=== PATIENT | female | born 1945 | race Caucasian/White ===

== ENCOUNTER 2017-04-12 13:19 | Emergency (ER) | payer OTHER ==
--- NOTE | 2017-04-12 14:03 | EDPHY ---
H & P Stated Complaint: L LOWER ABD PAIN/VAGINAL? BLEEDING/HAS HAD HYSTERECTOMY Time Seen by Provider: 04/12/17 14:03 HPI/ROS: CHIEF COMPLAINT: Left-sided abdominal pain, resolved vaginal bleeding HISTORY OF PRESENT ILLNESS: The patient presents to the ED for evaluation of left-sided abdominal pain. She has had several days of diarrhea. The patient reports that over the past 3 days she has had some intermittent vaginal bleeding. The patient reports she has a prior history of hysterectomy. She has had no history of vaginal bleeding in the past. She denies any fall or trauma. The patient does have a history of prior back surgeries with an anterior abdominal approach. The patient did developed a small-bowel obstruction which required hospitalization and bowel section in June of this year. The patient denies any fever, dysuria, cough or congestion. She reports her left-sided abdominal pain as mild in nature. REVIEW OF SYSTEMS: A comprehensive 10 point review of systems is otherwise negative aside from elements mentioned in the history of present illness. Source: Patient Exam Limitations: No limitations - Personal History Current Tetanus/Diphtheria Vaccine: Unsure - Medical/Surgical History Hx Asthma: Yes Hx Chronic Respiratory Disease: No Hx Diabetes: Yes Hx Cardiac Disease: No Hx Renal Disease: No Hx Cirrhosis: No Hx Alcoholism: No Hx HIV/AIDS: No Hx Splenectomy or Spleen Trauma: No Other PMH: BACK SURG/HYSTERECOMY/CARPAL TUNNEL/BURT SAN/PLANTAR FASCITIS/ - Social History Smoking Status: Never smoked - Physical Exam Exam: General Appearance: Slightly obese female, no acute distress Eyes: Pupils equal and round no pallor or injection ENT, Mouth: Mucous membranes moist Respiratory: There are no retractions, lungs are clear to auscultation Cardiovascular: Regular rate and rhythm Gastrointestinal: Tenderness to palpation left lower quadrant Genitourinary: No obvious vaginal bleeding or evidence external vaginal trauma noted. Speculum does demonstrate some prolapse of the bladder into the vaginal canal, there is no obvious source of bleeding appreciated on speculum examination Neurological: A&O, normal motor function, normal sensory exam Skin: Warm and dry, no rashes Musculoskeletal: Neck is supple nontender Extremities: symmetrical, full range of motion Constitutional: Initial Vital Signs Temperature (C) 36.7 C 04/12/17 13:30 Heart Rate 82 04/12/17 13:30 Respiratory Rate 17 04/12/17 13:30 Blood Pressure 159/90 H 04/12/17 13:30 O2 Sat (%) 95 04/12/17 13:30 O2 Delivery Mode Room Air Allergies/Adverse Reactions: amoxicillin [From Augmentin] Allergy (Verified 04/12/17 13:28) clavulanic acid [From Augmentin] Allergy (Verified 04/12/17 13:28) erythromycin base Allergy (Verified 04/12/17 13:28) naproxen Allergy (Verified 04/12/17 13:28) Home Medications: Medication Instructions Recorded Janumet 50-1,000 mg Tablet 04/12/17 Omeprazole 04/12/17 SIMVASTATIN 04/12/17 Medical Decision Making - Diagnostics Imaging Results: Imaging Impressions Abdomen CT 04/12/17 14:26 Impression: 1. Postsurgical stranding in the left lower quadrant ventral to hernia mesh, which could be related to inflammation or recent surgery, with no visible abscess or hematoma. 2. Minimal sigmoid diverticulosis without evidence of diverticulitis. 3. Additional findings as above. Findings discussed with Javier Love 04/12/2017, at 1503 hours. ED Course/Re-evaluation: The patient presents the emergency department with mild left lower quadrant pain and concerns about resolved vaginal bleeding. The patient is nontoxic well -appearing. She has mild tenderness noted on her abdominal exam. Pelvic examination demonstrated no obvious source of bleeding. The patient was taken for CT scan of the abdomen pelvis to assess for possible diverticulitis or other intra-abdominal pathology. Fortunately the results of this study were normal. The patient's CBC and serum chemistries are within normal limits. The patient was re-evaluated by myself at 3:30 p.m.. She is in no acute distress. Her abdominal examination remains reassuring. I do feel that she can be discharged home and follow up with her primary care provider Dr. Carline Hogan for any symptoms of recurrent vaginal bleeding. She has been given customary aftercare instructions and return precautions. Differential Diagnosis: Differential diagnosis considered includes vaginal trauma, vaginal malignancy, diverticulitis, dehydration, lower GI bleed - Data Points Laboratory Results: Laboratory Results 04/12/17 14:00 04/12/17 14:00 04/12/17 04/12/17 04/12/17 14:01 14:00 14:00 WBC RBC Hgb POC Hgb 15.6 gm/dL gm/dL (12.6-16.3) Hct POC Hct 46 % % (38-47) MCV MCH MCHC RDW Plt Count MPV Neut % (Auto) Lymph % (Auto) Allen % (Auto) Eos % (Auto) Baso % (Auto) Nucleat RBC Rel Count Absolute Neuts (auto) Absolute Lymphs (auto) Absolute Monos (auto) Absolute Eos (auto) Absolute Basos (auto) Absolute Nucleated RBC Immature Gran % Immature Gran # PT 13.4 SEC SEC (12.0-15.0) INR 1.03 (0.83-1.16) APTT 32.0 SEC SEC (23.0-38.0) POC Sodium 142 mEq/L mEq/L (134-144) Sodium 141 mEq/L mEq/L (134-144) POC Potassium 4.1 mEq/L mEq/L (3.3-5.0) Potassium 4.2 mEq/L mEq/L (3.5-5.2) POC Chloride 104 mEq/L mEq/L (97-110) Chloride 103 mEq/L mEq/L (97-110) Carbon Dioxide 24 mEq/l mEq/l (22-31) Anion Gap 14 mEq/L mEq/L (8-16) POC BUN 22 mg/dL mg/dL (7-23) BUN 19 mg/dL mg/dL (7-23) Creatinine 0.9 mg/dL mg/dL (0.6-1.0) POC Creatinine 0.9 mg/dL mg/dL (0.6-1.0) Estimated GFR > 60 Glucose 112 mg/dL H mg/dL (70-100) POC Glucose 118 mg/dL H mg/dL (70-100) Calcium 9.9 mg/dL mg/dL (8.5-10.4) 04/12/17 14:00 WBC 9.49 10^3/uL 10^3/uL (3.80-9.50) RBC 5.15 10^6/uL 10^6/uL (4.18-5.33) Hgb 15.3 g/dL g/dL (12.6-16.3) POC Hgb Hct 44.6 % % (38.0-47.0) POC Hct MCV 86.6 fL fL (81.5-99.8) MCH 29.7 pg pg (27.9-34.1) MCHC 34.3 g/dL g/dL (32.4-36.7) RDW 13.9 % % (11.5-15.2) Plt Count 231 10^3/uL 10^3/uL (150-400) MPV 9.7 fL fL (8.7-11.7) Neut % (Auto) 71.0 % % (39.3-74.2) Lymph % (Auto) 21.8 % % (15.0-45.0) Allen % (Auto) 5.3 % % (4.5-13.0) Eos % (Auto) 0.8 % % (0.6-7.6) Baso % (Auto) 0.7 % % (0.3-1.7) Nucleat RBC Rel Count 0.0 % % (0.0-0.2) Absolute Neuts (auto) 6.73 10^3/uL H 10^3/uL (1.70-6.50) Absolute Lymphs (auto) 2.07 10^3/uL 10^3/uL (1.00-3.00) Absolute Monos (auto) 0.50 10^3/uL 10^3/uL (0.30-0.80) Absolute Eos (auto) 0.08 10^3/uL 10^3/uL (0.03-0.40) Absolute Basos (auto) 0.07 10^3/uL 10^3/uL (0.02-0.10) Absolute Nucleated RBC 0.00 10^3/uL 10^3/uL (0-0.01) Immature Gran % 0.4 % % (0.0-1.1) Immature Gran # 0.04 10^3/uL 10^3/uL (0.00-0.10) PT INR APTT POC Sodium Sodium POC Potassium Potassium POC Chloride Chloride Carbon Dioxide Anion Gap POC BUN BUN Creatinine POC Creatinine Estimated GFR Glucose POC Glucose Calcium Point of Care Test Results: 04/12/17 14:01 POC Sodium 142 POC Potassium 4.1 POC Chloride 104 POC BUN 22 POC Creatinine 0.9 POC Glucose 118 H Departure - Departure Disposition: Home, Routine, Self-Care Clinical Impression: Abdominal pain Qualifiers: Abdominal location: left lower quadrant Qualified Code(s): R10.32 - Left lower quadrant pain Condition: Good Instructions: Abdominal Pain (ED) Additional Instructions: 1. Please return to the emergency department for any worsening abdominal pain, recurrent bleeding, fever or other concerns. . Your CT scan demonstrates no evidence of obvious intra-abdominal disease. Your pelvic examination demonstrated no obvious source of vaginal bleeding. 2. I do recommend following up with your primary care provider for any symptoms of recurrence vaginal bleeding. You have also been given the contact number of our on-call regional marketing director for any on-going symptoms. Referrals: Bre Hogan MD [Primary Care Provider] - As per Instructions
[2017-04-12 14:04] VITALS: O2SAT 95
[2017-04-12 14:17] LABS: % IMMATURE GRANULYOCYTES 0.4 % (0.0-1.1); ABSOLUTE IMMATURE GRANULOCYTES 0.04 10^3/uL (0.00-0.10); ADD DIFF? NO; ADD MORPH? NO; ADD SCAN? NO; ATYPICAL LYMPHOCYTE FLAG 0 (0-99); FRAGMENT RBC FLAG 0 (0-99); HEMATOCRIT 44.6 % (38.0-47.0); HEMOGLOBIN 15.3 g/dL (12.6-16.3); LEFT SHIFT FLG 0 (0-99); LIPEMIA HEMOLYSIS FLAG 90 (0-99); MEAN CELL HEMOGLOBIN 29.7 pg (27.9-34.1); MEAN CELL HEMOGLOBIN CONCENTR. 34.3 g/dL (32.4-36.7); MEAN CELL VOLUME 86.6 fL (81.5-99.8); MEAN PLATELET VOLUME 9.7 fL (8.7-11.7); PLATELET CLUMPS FLAG 10 (0-99); PLATELET COUNT 231 10^3/uL (150-400); RED BLOOD CELL COUNT 5.15 10^6/uL (4.18-5.33); RED CELL DISTRIBUTION WIDTH 13.9 % (11.5-15.2)
[2017-04-12 14:26] LABS: INR 1.03 (0.83-1.16); PROTIME(PATIENT) 13.4 SEC (12.0-15.0)
[2017-04-12] MEDS ORDERED: IOPAMIDOL (ISOVUE-300) 100 ML BTL ONE (14:33)
[2017-04-12 14:39] LABS: ANION GAP 14 mEq/L (8-16); CALCIUM 9.9 mg/dL (8.5-10.4); CARBON DIOXIDE 24 mEq/l (22-31); CHLORIDE 103 mEq/L (97-110); CREATININE 0.9 mg/dL (0.6-1.0); GLOMERULAR FILTRATION RATE > 60; GLUCOSE 112 mg/dL (70-100); POTASSIUM 4.2 mEq/L (3.5-5.2); SODIUM 141 mEq/L (134-144)
[2017-04-12 15:17] VITALS: BP 128/69; PULSE 65; RESP 18; TEMP 98.2
== END 2017-04-12 15:37 | disposition home or self-care (01) ==
DX: R10.32 Left lower quadrant pain (principal); J45.909 Unspecified asthma, uncomplicated; E11.9 Type 2 diabetes mellitus without complications
CPT/HCPCS: 74177; 99285; Q9967; 82947-QW

== ENCOUNTER → 2017-08-08 | Outpatient (CLI) | payer OTHER ==
[~2017-08-08] MED LIST: IOPAMIDOL (ISOVUE-300) 100 ML BTL ONE
== END ==
LOC: FIMAGING 13:53
PROVIDERS: ATTEND Surgery
DX: R10.32 Left lower quadrant pain (principal); Z90.710 Acquired absence of both cervix and uterus; Z98.1 Arthrodesis status; Z98.890 Other specified postprocedural states
CPT/HCPCS: 74177; Q9967

== ENCOUNTER 2017-10-14 05:56 | Inpatient (IN) | payer OTHER ==
--- NOTE | 2017-10-13 09:46 | PDGENHP ---
History and Physical - Chief Complaint LLQ pain - History of Present Illness 72yo female who presented to OSH in 2017 with incarcerated LLQ hernia. Was taken to the OR for reduction and repair. Since then, has had chronic LLQ pain. Has been seen in my office multiple times. CT scanning has shows persistence of inflammation adjacent to old composix mesh (PTFE). She desires relief History Information - Allergies/Home Medication List Allergies/Adverse Reactions: amoxicillin [From Augmentin] Allergy (Verified 04/12/17 13:28) clavulanic acid [From Augmentin] Allergy (Verified 04/12/17 13:28) erythromycin base Allergy (Verified 04/12/17 13:28) naproxen Allergy (Verified 04/12/17 13:28) Home Medications: Cholecalciferol (Vitamin D3) [Vitamin D3] 10,000 unit PO DAILY 10/11/17 [Last Taken Unknown] FLUoxetine HCL [Fluoxetine HCl] 40 mg PO DAILY 10/11/17 [Last Taken Unknown] Ibuprofen [Motrin (*)] 600 - 800 mg PO BID PRN 10/11/17 [Last Taken Unknown] Multivitamins [Multivitamin (*)] 1 each PO DAILY 10/11/17 [Last Taken Unknown] Omeprazole 40 mg PO DAILY 10/11/17 [Last Taken Unknown] Simvastatin [Zocor] 40 mg PO HS 10/11/17 [Last Taken Unknown] Sitagliptin Phos/Metformin HCl [Janumet 50-500 mg Tablet] 1 each PO BID [Last Taken Unknown] I have personally reviewed and updated: family history, medical history, social history, surgical history Past Medical History: depression, DM, HLD, chronic LLQ pain - Surgical History Additional surgical history: incarcerated ventral hernia repaired c mesh 07/2016 - Family History Positive for: non-pertinent - Social History Smoking Status: Never smoked Review of Systems Review of Systems: ROS: 10pt was reviewed & negative except for what was stated in HPI & below Physical Exam Physical Exam: Constitutional: no apparent distress, appears nourished, not in pain Eyes: PERRL, anicteric sclera, EOMI Ears, Nose, Mouth, Throat: moist mucous membranes, hearing normal, ears appear normal, no oral mucosal ulcers Cardiovascular: regular rate and rhythym, no murmur, rub, or gallop, No edema Respiratory: no respiratory distress, no rales or rhonchi, clear to auscultation Gastrointestinal: other (TTP in the LLQ adjacent to incision, no rebound or guarding ) Genitourinary: no bladder fullness, no bladder tenderness Skin: warm, normal color, no rashes or abrasions, no fluctuance, no induration, No mottled Musculoskeletal: full muscle strength, no muscle tenderness, normal joint ROM, no joint effusions Psychiatric: interacting appropriately, not anxious, not encephalopathic, thought process linear Lymph, Heme, Immunologic: no cervical LAD, no supraclavicular LAD Lab Data & Imaging Review Visualized and Interpreted imaging results: Yes Interpretation: CT: persistent inflammation adjacent to previous mesh Assessment & Plan Assessment: chronic LLQ pain following incarcerated hernia repair Plan: to OR for exploration, likely mesh explantation and repair. Discussed the risks , benefits and alternatives including the fact that she may have persistent pain in the area. She is amenable and wishes to proceed.
[2017-10-14] MEDS ORDERED: CLINDAMYCIN 900 MG/DEXTROSE 50 ML IV ONE (06:27)
[2017-10-14] MEDS ORDERED: LR 1,000 ML IV ONE (06:28)
[2017-10-14 07:01] LABS: PLATELET COUNT 221 10^3/uL (150-400)
--- NOTE | 2017-10-14 07:35 | PDHPUP ---
History & Physical Update H&P update statement: This history and physical update is based on an assessment of the patient which was completed after admission or registration (within 24 hours), but prior to the surgery/procedure. H&P update: H&P reviewed & patient examined, no change in patient's condition since H&P completed
[2017-10-14] MEDS ORDERED: BUPIVACAINE 0.25% 30 ML SDV ONE (08:02)
--- NOTE | 2017-10-14 08:10 | PDANEPAE ---
ANE History of Present Illness L abdominal wall mesh removal and inguinal hernia repair ANE Past Medical History - Cardiovascular History Hx Hypertension: No Hx Arrhythmias: No Hx Chest Pain: No Hx Coronary Artery / Peripheral Vascular Disease: No Hx CHF / Valvular Disease: No Hx Palpitations: No - Pulmonary History Hx COPD: No Hx Asthma/Reactive Airway Disease: Yes Hx Recent Upper Respiratory Infection: No Hx Oxygen in Use at Home: No Hx Sleep Apnea: No Sleep Apnea Screening Result - Last Documented: Negative Pulmonary History Comment: MILD ASTHMA TRIGGERED BY COLDS - Neurologic History Hx Cerebrovascular Accident: No Hx Seizures: No Hx Dementia: No - Endocrine History Hx Diabetes: Yes Endocrine History Comment: TYPE 11 - Renal History Hx Renal Disorders: No - Liver History Hx Hepatic Disorders: No - Neurological & Psychiatric Hx Hx Neurological and Psychiatric Disorders: No Neurological / Psychiatric History Comment: DEPRESSION - Cancer History Hx Cancer: No - Congenital Disorder History Hx Congenital Disorders: Yes Congenital History Comment: DIABETES - GI History Hx Gastrointestinal Disorders: Yes Gastrointestinal History Comment: REFLUX - Other Health History Other Health History: UPPER DENTURES - Chronic Pain History Chronic Pain: Yes (LOWER BACK) - Surgical History Prior Surgeries: HERNIA REPAIR 06/22 ANE Review of Systems Review of Systems: - Exercise capacity METS (RN): 4 METS ANE Patient History - Allergies Allergies/Adverse Reactions: amoxicillin [From Augmentin] Allergy (Verified 10/13/17 12:27) Hives clavulanic acid [From Augmentin] Allergy (Verified 10/13/17 12:27) Hives erythromycin base Allergy (Verified 10/13/17 12:27) Rash naproxen Allergy (Verified 10/13/17 12:27) Rash - Home Medications Home medications: home medication list seen and reviewed Home Medications: Cholecalciferol (Vitamin D3) [Vitamin D3] 10,000 unit PO DAILY 10/11/17 [Last Taken 10/13/17] FLUoxetine HCL [Fluoxetine HCl] 40 mg PO DAILY 10/11/17 [Last Taken 10/13/17] Ibuprofen [Motrin (*)] 600 - 800 mg PO BID PRN 10/11/17 [Last Taken 10/13/17] Multivitamins [Multivitamin (*)] 1 each PO DAILY 10/11/17 [Last Taken 10/13/17] Omeprazole 40 mg PO DAILY 10/11/17 [Last Taken 10/13/17] Simvastatin [Zocor] 40 mg PO HS 10/11/17 [Last Taken 10/13/17] Sitagliptin Phos/Metformin HCl [Janumet 50-500 mg Tablet] 1 each PO BID [Last Taken 10/13/17] - NPO status NPO Status: no food or drink >8 hours NPO Since - Liquids (Date): 10/14/17 NPO Since - Liquids (Time): 00:01 NPO Since - Solids (Date): 10/13/17 NPO Since - Solids (Time): 23:00 - Anes Hx Anes Hx: no prior problems - Smoking Hx Smoking Status: Never smoked - Alcohol Use Alcohol Use: None - Family Anes Hx Family Anes Hx: none Family Hx Anesthesia Complications: NONE ANE Labs/Vital Signs - Labs Result Diagrams: 10/14/17 06:55 10/14/17 06:55 - Vital Signs Blood Pressure: 130/76 Heart Rate: 83 Respiratory Rate: 16 O2 Sat (%): 95 Height: 152.4 cm Weight: 84.368 kg ANE Physical Exam - Airway Mallampati Score: Class 1 Mouth exam: normal dental/mouth exam - Pulmonary Pulmonary: no respiratory distress - Cardiovascular Cardiovascular: regular rate and rhythym - ASA Status ASA Status: II ANE Anesthesia Plan Anesthesia Plan: general endotracheal anesthesia, GA w LMA
[2017-10-14] MEDS ORDERED: PROPOFOL/EMULSION 500 MG/50 ML BOTTLE IV ONE ×2 (08:18→09:28)
[2017-10-14] MEDS ORDERED: REMIFENTANIL HCL 1 MG VIAL ONE ×2 (08:18→09:27)
[2017-10-14] MEDS ORDERED: fentaNYL 100 MCG/2 ML INJ ONE ×2 (08:19→10:42)
[2017-10-14] MEDS ORDERED: DEXAMETHASONE 4 MG/ML VIAL ONE (08:21)
[2017-10-14] MEDS ORDERED: LIDOCAINE 2% 100 MG/5 ML SYR ONE (08:21)
[2017-10-14] MEDS ORDERED: ONDANSETRON 4 MG/2 ML VIAL ONE (08:21)
[2017-10-14] MEDS ORDERED: LIDOCAINE HCL 160 MG/4 ML LTA KIT TP ONE (08:26)
[2017-10-14] MEDS ORDERED: epHEDrine SULFATE 10 MG/ML SYR ONE ×2 (08:33)
[2017-10-14] MEDS ORDERED: [UNRECOGNIZED DRUG - OTHER] PO SCH (09:00)
[2017-10-14] MEDS ORDERED: METFORMIN HCL PO SCH (09:00)
[2017-10-14] MEDS ORDERED: SITAGLIPTIN PHOS PO SCH (09:00)
[2017-10-14] MEDS ORDERED: NON-FORMULARY NEW DRUG (Omeprazole [Omeprazole] 40 MG) PO SCH (09:00)
[2017-10-14] MEDS ORDERED: CHOLECALCIFEROL 10000 UNIT PO SCH (09:00)
[2017-10-14] MEDS ORDERED: NON-FORMULARY NEW DRUG (Fluoxetine Hcl [Fluoxetine Hcl] 40 MG) PO SCH (09:00)
[2017-10-14] MEDS ORDERED: NALOXONE HCL 0.4 MG/ML INJ IVP PRN (10:10)
[2017-10-14] MEDS ORDERED: METOCLOPRAMIDE 10 MG/2 ML VIAL IVP PRN (10:10)
[2017-10-14] MEDS ORDERED: PROMETHAZINE HCL 25 MG/ML INJ IVP PRN (10:10)
[2017-10-14] MEDS ORDERED: LABETALOL HCL 5 MG/ML 20 ML MDV IVP PRN (10:10)
[2017-10-14] MEDS ORDERED: PHENYLEPHRINE HCL 100 MCG/ML SYR IVP PRN (10:10)
[2017-10-14] MEDS ORDERED: oxyCODONE IR 5 MG TAB PO PRN (10:10)
[2017-10-14] MEDS ORDERED: ALBUTEROL 3 ML DEYVIAL IH PRN (10:10)
[2017-10-14] MEDS ORDERED: ONDANSETRON 4 MG/2 ML VIAL IVP PRN ×2 (10:10→10:31)
[2017-10-14] MEDS ORDERED: ACETAMINOPHEN 500 MG TAB PO PRN (10:10)
[2017-10-14] MEDS ORDERED: DEXAMETHASONE 4 MG/ML VIAL IVP PRN (10:10)
[2017-10-14] MEDS ORDERED: LR 500 ML IV PRN (10:10)
[2017-10-14] MEDS ORDERED: HYDROCODONE/APAP 5/325 TAB PO PRN (10:10)
[2017-10-14] MEDS ORDERED: MEPERIDINE 25 MG/0.5 ML AMP IVP PRN (10:10)
[2017-10-14] MEDS ORDERED: HYDROmorphone HCL/NS 0.5 MG/ML SYR IVP PRN (10:31)
--- NOTE | 2017-10-14 10:31 | POSTOPPROG ---
Post Op Note Date of Operation: 10/14/17 Surgeon: Ángel Mariano Anesthesiologist: Josiah Anesthesia: GET(General Endotracheal) Pre-op Diagnosis: Chronic LLQ pain Post-op Diagnosis: same Procedure: abd exploration, mesh explantation, ventral hernia repair Findings: old mesh adherent, removed, no abscess Inf/Abcess present in the surg proc area at time of surgery?: No EBL: 50-100 Specimen(s): old mesh
[2017-10-14] MEDS ORDERED: HYDROmorphONE/DILAUDID 2 MG/ML INJ ONE (10:43)
[2017-10-14] MEDS: fentaNYL 100 MCG/2 ML INJ IVP PRN ×2 (10:44→10:54)
[2017-10-14] MEDS ORDERED: D5W 1/2 NS W/ 20 KCl/L 1,000 ML IV SCH (10:45)
[2017-10-14] MEDS: HYDROmorphONE/DILAUDID 2 MG/ML INJ IVP PRN ×2 (10:45→10:54)
[2017-10-14] MEDS ORDERED: oxyCODONE IR 5 MG TAB ONE (11:12)
--- NOTE | 2017-10-14 14:01 | GOP ---
[f rep st] OPERATIVE REPORT DATE OF OPERATION: 10/14/2017 SURGEON: Ángel Mariano MD COMPOTYPE OPERATOR: None. ANESTHESIA: General endotracheal. ANESTHESIOLOGIST: Guido Rahman MD PREOPERATIVE DIAGNOSIS: Chronic pain status post incarcerated ventral hernia repair. POSTOPERATIVE DIAGNOSIS: Chronic pain status post incarcerated ventral hernia repair. PROCEDURE PERFORMED: 1. Abdominal exploration. 2. Mesh explantation. 3. Ventral hernia repair with mesh. FINDINGS: Old mesh found balled up beneath fascia containing and adherent to small bowel, completely excised, fascial edges cleansed and repaired with 9 cm Symbotex mesh. SPECIMENS: Old mesh. ESTIMATED BLOOD LOSS: 50 cc. INDICATIONS: A 72-year-old female status post incarcerated ventral hernia repair approximately 1 yea r ago. The patient has had chronic pain since repair. CT scan imaging has shown chronic inflammatio n at the site. DESCRIPTION OF PROCEDURE: The patient was greeted in the preoperative suite. Once again, risks, gladis efits, and alternatives were discussed. Consent was signed. She was then brought back to the operati ve suite, placed on the OR table in supine position. After all anesthesia machines, including SCDs, were on and functioning, a [employer] time-out was performed. After successful inducti on of general anesthesia, the patient's abdomen was prepped and draped in typical sterile fashion. I entered the abdomen via her left-sided incision which had been previously utilized. I carried this down through the subcutaneous tissue where I encountered the fascia. The fascial edges were clean an d I entered the fascia just deep to this, I encountered the mesh. The mesh was somewhat adherent to the underlying fascia but more so adherent to the underlying bowel. I spent a significant amount of time successfully lysing small bowel adhesions to the mesh, completely freeing it of all surrounding tissue and successfully explanting it. Once removed, it was passed off. I then inspected the bowel, which was without injury. I then cleaned the underside of the fascial edges circumferentially. I h ad approximately a 5 cm defect. I brought a 9 cm piece of Symbotex mesh into the field in all 4 quad rants. I successfully attached it to the overlying fascia, and anchored it appropriately. I then pl aced additional anchor stitches in all the gap sites utilizing 2-0 Prolene. Once the mesh was succes sfully anchored, I then turned my attention toward closing the fascia, which was done with a running 0 PDS suture, noting excellent fascial reapproximation. Local anesthesia was then infiltrated into t he fascia. Subcutaneous tissue was then irrigated with warm normal saline. It was reapproximated wi th interrupted 3-0 Monocryl and the skin was closed with ranjan. Sterile dressing was placed. The patient was then extubated in the operative suite and taken to the PACU in satisfactory condition. DRAINS: None. COUNTS: All counts were reported as correct x2. /[id number]/MODL
[2017-10-14] MEDS: FLUoxetine 20 MG CAP PO SCH (14:04)
[2017-10-14] MEDS: metFORMIN HCL 500 MG TAB PO SCH ×2 (14:05→20:37)
[2017-10-14] MEDS: PANTOPRAZOLE SODIUM 40 MG TAB PO SCH (14:07)
--- NOTE | 2017-10-14 16:07 | SOAPPROG ---
CHAN Progress Note Assessment/Plan: Assessment/Plan: 72yo F POD#0 s/p mesh explantation and re-do hernia repair for chronic pain - she is a little tachycardic, her pain appears well controlled and she has had adequate UOP - pain is well controlled - abdomen is soft, dressing has some shadowing - needs to ambulate - anticipate home tomorrow versus Tuesday. Dr Durán to see. 10/14/17 16:03 Subjective: doing well, had a shake. Pain is 3/10 Objective: Vital Signs Temp Pulse Resp BP Pulse Ox 36.7 C 101 H 14 93/80 L 92 10/14/17 15:47 10/14/17 15:47 10/14/17 15:47 10/14/17 15:47 10/14/17 15:47 Laboratory Results 10/14/17 06:55 10/14/17 06:55 10/13/17 10/14/17 10/15/17 05:59 05:59 05:59 Intake Total 1600 Output Total 925 Balance 675 ICD10 Worksheet Patient Problems: Problems Problem Status Onset Chronic abdominal pain Acute - ICD10 Problem Qualifiers (1) Chronic abdominal pain
--- NOTE | 2017-10-14 17:37 | PDMN ---
Medical Necessity Medical necessity: C/M review: Chronic pain status post incarcerated ventral hernia repair requiring 10/14/2017 surgery - abdominal exploration, mesh explantation, ventral hernia repair with mesh (CPT code [id number] only surgery per Medicare guidelines). MD anticipates > 2 MN LOS for ongoing med nec for eval and TX of above.
[2017-10-14] MEDS ORDERED: ATORVASTATIN CALCIUM 20 MG TAB PO SCH (21:00)
[2017-10-14] MEDS ORDERED: NON-FORMULARY NEW DRUG (Simvastatin [Zocor] 40 MG) PO SCH (21:00)
[2017-10-15] MEDS: oxyCODONE IR 5 MG TAB PO PRN ×2 (02:59→10:59)
[2017-10-15 07:40] VITALS: BP 107/73
[2017-10-15] MEDS: metFORMIN HCL 500 MG TAB PO SCH (08:58)
[2017-10-15] MEDS: PANTOPRAZOLE SODIUM 40 MG TAB PO SCH (08:58)
[2017-10-15] MEDS: FLUoxetine 20 MG CAP PO SCH (08:59)
[2017-10-15] MEDS ORDERED: CHOLECALCIFEROL VIT D3 2,000 UNITS TAB/CAP PO SCH (09:00)
--- NOTE | 2017-10-15 09:55 | SOAPPROG ---
SOAP Progress Note Assessment/Plan: Assessment: s/p ventral hernia repair Doing very well May dc home No heavy lifting, pushing or pulling greater than 15 lbs for 6 weeks F/U with Dr. Mariano in 7-10 days Diet as tolerated S: Pain controlled. Tolerating diet O: Sitting in bed, appears comfortable CTAB no increased work of breathing Regular rate BS present Soft, Dressing with stain at base Plan: 10/15/17 09:53 Objective: Vital Signs Temp Pulse Resp BP Pulse Ox 36.8 C 88 16 107/73 91 L 10/15/17 07:39 10/15/17 07:39 10/15/17 07:39 10/15/17 07:39 10/15/17 07:39 Laboratory Results 10/14/17 06:55 10/14/17 06:55 10/14/17 10/15/17 10/16/17 05:59 05:59 05:59 Intake Total 4444 Output Total 3875 400 Balance 569 -400 ICD10 Worksheet Patient Problems: Problems Problem Status Onset Chronic abdominal pain Acute
--- NOTE | 2017-10-20 11:20 | PDDCSUM ---
Discharge Summary Discharge Summary: DISCHARGE SUMMARY Date of Admission October 14 Date of Discharge October 15 DISCHARGE DIAGNOSES - chronic left lower quadrant pain HOSPITAL COURSE The patient was admitted and taken to the operating room where her previous mesh repair was successfully explanted in the defect was repaired with a two- layer covered mesh. The patient tolerated the procedure well, had no intraprocedural or postoperative complications. On the day of discharge she was tolerating a regular diet with appropriate pain control, she was subsequently discharged home in stable condition. DISCHARGE MEDICATIONS Narcotics as needed for pain DISPOSITION Home FOLLOW UP Follow up with me in the office in 10-14 days for a general post-operative visit
== END 2017-10-15 14:11 | disposition home or self-care (01) | DRG 909 ==
LOC: F3N 05:56 → F3E 09:19 → OBSVTOIN 10:31 → F3E 11:33
PROVIDERS: ADMIT Surgery; ATTEND Surgery
PROC: 0WUF0JZ Supplement Abdominal Wall with Synthetic Substitute, Open Approach (ICD-10-PCS; principal; 2017-10-14 08:15)
PROC: 0WPF0JZ Removal of Synthetic Substitute from Abdominal Wall, Open Approach (ICD-10-PCS; principal; 2017-10-14 08:15)
DX: T85.848A Pain due to other internal prosthetic devices, implants and grafts, initial encounter (principal); J45.20 Mild intermittent asthma, uncomplicated; E11.9 Type 2 diabetes mellitus without complications
CPT/HCPCS: 97161-GP; C1781; G8978-GP-CH; G8979-GP-CH; G8980-GP-CH; J1100; J1170; J2001; J2370; J2405; J2704; J3010

== ENCOUNTER → 2018-09-11 | Outpatient (CLI) | payer OTHER | LOC: BRMIMAGING 13:26 | PROVIDERS: ATTEND Nurse Practitioner | DX: R05 Cough (principal) | CPT/HCPCS: 71046-PO ==

== ENCOUNTER 2018-09-21 13:07 | Inpatient (IN) | payer OTHER ==
--- NOTE | 2018-09-21 13:32 | EDPHY ---
H & P Stated Complaint: abd pain n/v/d, has consulted Caroline about hernia sx Time Seen by Provider: 09/21/18 13:31 HPI/ROS: HPI: This is a 73-year-old female who presents with Chief Complaint: abd pain n/v/d, has consulted Caroline about hernia sx Location: Periumbilical Quality: Pain, nausea, vomiting Duration: Today Signs and Symptoms: no fever, + nausea, + vomiting, no hematemesis, no blood in stool, no abdominal bloating,+ diarrhea, no back pain, no urinary symptoms, no vaginal bleeding/discharge, no indigestion, no chest pain, no shortness of breath Timing: Rapid onset, intermittent episodes Severity: Moderate to severe Context: Patient complains of sudden onset of nausea and vomiting approximately 3-5 times that started around 11:00 a.m. She was able to eat breakfast today without any difficulty. Patient reports that now she just has dry heaves. Alternating fever and chills. Denies any urinary symptoms, back pain. She is passing flatus. She had several episodes of loose stool yesterday evening but this is not uncommon for her. Patient has a history of ventral hernia status post repair and mesh placement x2. Chart review shows in October of 2017 patient was admitted and had her previous mesh repair removed and the defect repaired with a 2 [address] mesh [address] Dr[address] Mariano. History of type 2 diabetes mellitus and took oral medications this morning. Modifying Factors: None Comment: ROS: A comprehensive 10 system review of systems is otherwise negative aside from elements mentioned in the history of present illness. MEDICAL/SURGICAL/SOCIAL HISTORY: Medical/Surgical history: BACK SURG/HYSTERECOMY/CARPAL TUNNEL sx/[place]/ PLANTAR FASCITIS/HLD/type 2 diabetes mellitus-takes oral medications Social history: Never smoked. Family history noncontributory. CONSTITUTIONAL: Overweight, nontoxic appearing, elderly white female, awake and alert, no obvious distress HEENT: Atraumatic and normocephalic, PERRL, EOMI. Nares patent; no rhinorrhea; no nasal mucosal edema. Tympanic membranes clear. Oropharynx clear, no exudate and moist pink mucosa. Airway patent. No lymphadenopathy. No meningismus. Cardiovascular: Normal S1/S2, regular rate, regular rhythm, without murmur rub or gallop. PULMONARY/CHEST: Symmetrical and nontender. Clear to auscultation bilaterally. Good air movement. No accessory muscle usage. ABDOMEN: Soft, protuberant, well-healed remote incision on the left side noted ; bowel sounds heard x4 quadrants. Moderate periumbilical tenderness, with reducible hernia appreciated, no rebound, no guarding, no peritoneal signs, no masses or organomegaly. No CVAT. EXTREMITIES: 2/2 pulses, strength 5/5, no deformities, no clubbing, no cyanosis or edema. NEUROLOGICAL: no focal neuro deficits. GCS 15. SKIN: Warm and dry, no erythema. no rash. Good capillary refill. Source: Patient Exam Limitations: No limitations - Personal History Current Tetanus/Diphtheria Vaccine: Unsure Current Tetanus Diphtheria and Acellular Pertussis (TDAP): Unsure - Medical/Surgical History Hx Asthma: Yes Hx Chronic Respiratory Disease: No Hx Diabetes: Yes Hx Cardiac Disease: No Hx Renal Disease: No Hx Cirrhosis: No Hx Alcoholism: No Hx HIV/AIDS: No Hx Splenectomy or Spleen Trauma: No Other PMH: BACK SURG/HYSTERECOMY/CARPAL TUNNEL sx/[place]/PLANTAR FASCITIS/ HLD - Social History Smoking Status: Never smoked Constitutional: Initial Vital Signs Heart Rate 72 09/21/18 13:09 Respiratory Rate 18 09/21/18 13:09 Blood Pressure 155/83 H 09/21/18 13:09 O2 Sat (%) 96 09/21/18 13:09 O2 Delivery Mode Room Air Allergies/Adverse Reactions: amoxicillin [From Augmentin] Allergy (Verified 10/13/17 12:27) Hives clavulanic acid [From Augmentin] Allergy (Verified 10/13/17 12:27) Hives erythromycin base Allergy (Verified 10/13/17 12:27) Rash naproxen Allergy (Verified 10/13/17 12:27) Rash Home Medications: Medication Instructions Recorded Cholecalciferol (Vitamin D3) 25,000 unit PO DAILY 10/11/17 [Vitamin D3] FLUoxetine HCL [Fluoxetine HCl] 40 mg PO DAILY 10/11/17 Ibuprofen [Motrin (*)] 600 - 800 mg PO BID PRN 10/11/17 Multivitamins [Multivitamin (*)] 1 each PO DAILY 10/11/17 Omeprazole 40 mg PO DAILY 10/11/17 Simvastatin [Zocor] 40 mg PO HS 10/11/17 Sitagliptin Phos/Metformin HCl 1 each PO BID 10/11/17 [Janumet 50-500 mg Tablet] Albuterol [Proventil Inhaler HFA 1 - 2 puffs IH Q4H PRN 09/21/18 (*)] Herbals/Supplements -Info Only 1 ea PO DAILY 09/21/18 [place]-3 Fatty Acids [Fish Oil 1000 1,000 mg PO DAILY 09/21/18 mg (*)] Medical Decision Making - Diagnostics Imaging Results: Imaging Impressions Abdomen CT 09/21/18 13:34 Impression: Large ventral abdominal wall hernia with multiple loops of small bowel within the subcutaneous fat. No evidence for small bowel obstruction. Mild adjacent stranding in the mesenteric fat and minimal fluid. Results called and discussed with Jackeline Schuler on 09/21/2018 at 1548 hours. ED Course/Re-evaluation: Vital signs reviewed and stable upon arrival. No systemic signs. IV access, laboratory studies, CT abdomen and pelvis scan ordered Given 1 L normal saline, IV Dilaudid 0.5 mg, IV Zofran 4 mg 1354: Notified by tech that lactic acid 2.5. Fluids normal saline 30 mL/kg ordered 1540: Called by a radiologist, Dr. Woodward, who reports that CT abdomen and pelvis scan shows ventral hernia measuring approximately 10 cm containing small loops of bowel but no signs of incarceration, inflammatory changes, perforation , obstruction. +Mild adjacent stranding in the mesenteric fat and minimal fluid. 1542: ED decision to consult Dr. Mariano. Repeat lactic acid 2.8; despite almost 3 L of IV fluids. Urinalysis ordered. Patient did have diarrhea yesterday and this may be the source. Will admit for further care. no stools in ER to obtain stool studies. 1700: Urinalysis unremarkable This patient was seen under the supervision of my primary supervising physician. I evaluated and cared for this patient with attending. Differential Diagnosis: Abdominal pain including but not limited to appendicitis, cholecystitis, obstruction, incarcerated hernia, gastritis and urinary tract infection. - Data Points Laboratory Results: Laboratory Results 09/21/18 13:40 09/21/18 13:40 09/21/18 09/21/18 09/21/18 15:39 14:16 13:40 WBC RBC Hgb POC Hgb 15.0 gm/dL gm/dL (12.6-16.3) Hct POC Hct 44 % % (38-47) MCV MCH MCHC RDW Plt Count MPV Neut % (Auto) Lymph % (Auto) [place] % (Auto) Eos % (Auto) Baso % (Auto) Nucleat RBC Rel Count Absolute Neuts (auto) Absolute Lymphs (auto) Absolute Monos (auto) Absolute Eos (auto) Absolute Basos (auto) Absolute Nucleated RBC Immature Gran % Immature Gran # VBG Lactic Acid 2.8 mmol/L H mmol/L (0.7-2.1) POC Sodium 142 mEq/L mEq/L (135-145) Sodium 138 mEq/L mEq/L (135-145) POC Potassium 3.6 mEq/L mEq/L (3.3-5.0) Potassium 3.9 mEq/L mEq/L (3.5-5.2) POC Chloride 104 mEq/L mEq/L (97-110) Chloride 104 mEq/L mEq/L (97-110) Carbon Dioxide 25 mEq/l mEq/l (22-31) POC Total CO2 25 mEq/L mEq/L (22-31) Anion Gap 9 mEq/L mEq/L (6-14) POC BUN 18 mg/dL mg/dL (7-23) BUN 20 mg/dL mg/dL (7-23) Creatinine 1.0 mg/dL mg/dL (0.6-1.0) POC Creatinine 0.9 mg/dL mg/dL (0.6-1.0) Estimated GFR 55 Glucose 110 mg/dL H mg/dL (70-100) POC Glucose 109 mg/dL H mg/dL (70-100) Calcium 9.4 mg/dL mg/dL (8.5-10.4) Total Bilirubin 0.3 mg/dL mg/dL (0.1-1.4) Conjugated Bilirubin 0.3 mg/dL mg/dL (0.0-0.5) Unconjugated Bilirubin 0.0 mg/dL mg/dL (0.0-1.1) AST 36 IU/L IU/L (14-46) ALT 52 IU/L IU/L (9-52) Alkaline Phosphatase 79 IU/L IU/L (38-126) Total Protein 6.6 g/dL g/dL (6.3-8.2) Albumin 3.8 g/dL g/dL (3.5-5.0) Lipase 80 IU/L IU/L (23-300) 09/21/18 09/21/18 13:40 13:40 WBC 11.92 10^3/uL H 10^3/uL (3.80-9.50) RBC 4.86 10^6/uL 10^6/uL (4.18-5.33) Hgb 14.1 g/dL g/dL (12.6-16.3) POC Hgb Hct 42.5 % % (38.0-47.0) POC Hct MCV 87.4 fL fL (81.5-99.8) MCH 29.0 pg pg (27.9-34.1) MCHC 33.2 g/dL g/dL (32.4-36.7) RDW 14.0 % % (11.5-15.2) Plt Count 238 10^3/uL 10^3/uL (150-400) MPV 10.2 fL fL (8.7-11.7) Neut % (Auto) 76.7 % H % (39.3-74.2) Lymph % (Auto) 15.4 % % (15.0-45.0) [place] % (Auto) 6.0 % % (4.5-13.0) Eos % (Auto) 1.0 % % (0.6-7.6) Baso % (Auto) 0.4 % % (0.3-1.7) Nucleat RBC Rel Count 0.0 % % (0.0-0.2) Absolute Neuts (auto) 9.14 10^3/uL H 10^3/uL (1.70-6.50) Absolute Lymphs (auto) 1.84 10^3/uL 10^3/uL (1.00-3.00) Absolute Monos (auto) 0.71 10^3/uL 10^3/uL (0.30-0.80) Absolute Eos (auto) 0.12 10^3/uL 10^3/uL (0.03-0.40) Absolute Basos (auto) 0.05 10^3/uL 10^3/uL (0.02-0.10) Absolute Nucleated RBC 0.00 10^3/uL 10^3/uL (0-0.01) Immature Gran % 0.5 % % (0.0-1.1) Immature Gran # 0.06 10^3/uL 10^3/uL (0.00-0.10) VBG Lactic Acid 2.5 mmol/L H mmol/L (0.7-2.1) POC Sodium Sodium POC Potassium Potassium POC Chloride Chloride Carbon Dioxide POC Total CO2 Anion Gap POC BUN BUN Creatinine POC Creatinine Estimated GFR Glucose POC Glucose Calcium Total Bilirubin Conjugated Bilirubin Unconjugated Bilirubin AST ALT Alkaline Phosphatase Total Protein Albumin Lipase Medications Given: Discontinued Medications Hydromorphone HCl (Dilaudid) 0.5 mg IVP EDNOW ONE Stop: 09/21/18 13:34 Last Admin: 09/21/18 14:02 Dose: 0.5 mg Sodium Chloride (Ns) 1,000 mls @ 0 mls/hr IV EDNOW ONE; Wide Open PRN Reason: Protocol Stop: 09/21/18 13:34 Last Admin: 09/21/18 14:02 Dose: 1,000 mls Sodium Chloride (Ns) 1,000 mls @ 0 mls/hr IV EDNOW ONE; Wide Open PRN Reason: Protocol Stop: 09/21/18 13:57 Last Admin: 09/21/18 14:00 Dose: 1,000 mls Sodium Chloride (Ns) 700 mls @ 0 mls/hr IV EDNOW ONE; Wide Open PRN Reason: Protocol Stop: 09/21/18 13:57 Last Admin: 09/21/18 14:04 Dose: 700 mls Ondansetron HCl (Zofran) 4 mg IVP EDNOW ONE Stop: 09/21/18 13:34 Last Admin: 09/21/18 14:02 Dose: 4 mg Point of Care Test Results: Chemistry 09/21/18 14:16 POC Sodium 142 mEq/L mEq/L (135-145) POC Potassium 3.6 mEq/L mEq/L (3.3-5.0) POC Chloride 104 mEq/L mEq/L (97-110) POC Total CO2 25 mEq/L mEq/L (22-31) POC BUN 18 mg/dL mg/dL (7-23) POC Creatinine 0.9 mg/dL mg/dL (0.6-1.0) POC Glucose 109 mg/dL H mg/dL (70-100) ISTAT H&H 09/21/18 14:16 POC Hgb 15.0 gm/dL gm/dL (12.6-16.3) POC Hct 44 % % (38-47) Departure - Departure Disposition: [facility] Inpatient Acute Clinical Impression: Ventral hernia without obstruction or gangrene, Lactic acidosis Diarrhea Qualifiers: Diarrhea type: unspecified type Qualified Code(s): R19.7 - Diarrhea, unspecified Condition: Fair
[2018-09-21] MEDS ORDERED: NS 1,000 ML IV ONE ×3 (13:33→17:28)
[2018-09-21] MEDS ORDERED: HYDROmorphONE/DILAUDID 2 MG/ML INJ IVP ONE (13:33)
[2018-09-21] MEDS ORDERED: ONDANSETRON 4 MG/2 ML VIAL IVP ONE (13:33)
[2018-09-21] MEDS ORDERED: NS 700 ML IV ONE (13:56)
[2018-09-21] MEDS ORDERED: IOPAMIDOL (ISOVUE-300) 100 ML BTL ONE (14:40)
[2018-09-21 15:28] LABS: PLATELET COUNT 238 10^3/uL (150-400)
[2018-09-21] MEDS ORDERED: ACETAMINOPHEN 325 MG TAB PO PRN (17:28)
[2018-09-21] MEDS ORDERED: ONDANSETRON DISINTEGRATING 4 MG TAB PO PRN (17:28)
[2018-09-21] MEDS ORDERED: HYDROmorphONE/DILAUDID 1 MG/ML INJ IVP PRN (17:28)
[2018-09-21] MEDS ORDERED: ONDANSETRON 4 MG/2 ML VIAL IVP PRN (17:28)
--- NOTE | 2018-09-21 17:40 | PDGENHP ---
History and Physical - Chief Complaint nausea, abd pain, diarrhea - History of Present Illness 73yo F known to me. Has had longstanding ventral hernia, we have been working up as outpatient. Over the last 12hrs, has had progressive nausea with diarrhea and abdominal pain. Presents here for evaluation. Received fluid bolus here, feels better. Abd pain has essentially resolved but still somewhat tender to deep palpation History Information - Allergies/Home Medication List Allergies/Adverse Reactions: amoxicillin [From Augmentin] Allergy (Verified 10/13/17 12:27) Hives clavulanic acid [From Augmentin] Allergy (Verified 10/13/17 12:27) Hives erythromycin base Allergy (Verified 10/13/17 12:27) Rash naproxen Allergy (Verified 10/13/17 12:27) Rash Home Medications: Cholecalciferol (Vitamin D3) [Vitamin D3] 25,000 unit PO DAILY 10/11/17 [Last Taken 09/20/18] FLUoxetine HCL [Fluoxetine HCl] 40 mg PO DAILY 10/11/17 [Last Taken 09/20/18] Ibuprofen [Motrin (*)] 600 - 800 mg PO BID PRN 10/11/17 [Last Taken 10/13/17] Multivitamins [Multivitamin (*)] 1 each PO DAILY 10/11/17 [Last Taken 09/20/18] Omeprazole 40 mg PO DAILY 10/11/17 [Last Taken 09/20/18] Simvastatin [Zocor] 40 mg PO HS 10/11/17 [Last Taken 09/20/18] Sitagliptin Phos/Metformin HCl [Janumet 50-500 mg Tablet] 1 each PO BID [Last Taken 09/21/18] Albuterol [Proventil Inhaler HFA (*)] 1 - 2 puffs IH Q4H PRN 09/21/18 [Last Taken Unknown] Herbals/Supplements -Info Only 1 ea PO DAILY 09/21/18 [Last Taken Unknown] [place]-3 Fatty Acids [Fish Oil 1000 mg (*)] 1,000 mg PO DAILY 09/21/18 [Last Taken Unknown] I have personally reviewed and updated: medical history, social history, surgical history Past Medical History: depression, DM, HLD, chronic LLQ pain - Surgical History Additional surgical history: incarcerated ventral hernia repaired c mesh 07/2016 - Family History Positive for: non-pertinent - Social History Smoking Status: Never smoked Review of Systems Review of Systems: ROS: 10pt was reviewed & negative except for what was stated in HPI & below Physical Exam Physical Exam: Temp Pulse Resp BP Pulse Ox 36.5 C 91 16 156/93 H 95 09/21/18 15:50 09/21/18 16:52 09/21/18 16:52 09/21/18 16:52 09/21/18 16:52 Constitutional: no apparent distress, appears nourished, not in pain Eyes: PERRL, anicteric sclera, EOMI Ears, Nose, Mouth, Throat: moist mucous membranes, hearing normal, ears appear normal, no oral mucosal ulcers Cardiovascular: regular rate and rhythym, no murmur, rub, or gallop, No edema Respiratory: no respiratory distress, no rales or rhonchi, clear to auscultation Gastrointestinal: other (obese, moderate sized lower midline ventral, reducible. ) Genitourinary: no bladder fullness, no bladder tenderness Skin: warm, normal color, no rashes or abrasions, no fluctuance, no induration, No mottled Musculoskeletal: full muscle strength, no muscle tenderness, normal joint ROM, no joint effusions Psychiatric: interacting appropriately, not anxious, not encephalopathic, thought process linear Lymph, Heme, Immunologic: no cervical LAD, no supraclavicular LAD Lab Data & Imaging Review 09/21/18 13:40 09/21/18 13:40 WBC 11.92 10^3/uL (3.80-9.50) H 09/21/18 13:40 RBC 4.86 10^6/uL (4.18-5.33) 09/21/18 13:40 Hgb 14.1 g/dL (12.6-16.3) 09/21/18 13:40 POC Hgb 15.0 gm/dL (12.6-16.3) 09/21/18 14:16 Hct 42.5 % (38.0-47.0) 09/21/18 13:40 POC Hct 44 % (38-47) 09/21/18 14:16 MCV 87.4 fL (81.5-99.8) 09/21/18 13:40 MCH 29.0 pg (27.9-34.1) 09/21/18 13:40 MCHC 33.2 g/dL (32.4-36.7) 09/21/18 13:40 RDW 14.0 % (11.5-15.2) 09/21/18 13:40 Plt Count 238 10^3/uL (150-400) 09/21/18 13:40 MPV 10.2 fL (8.7-11.7) 09/21/18 13:40 Neut % (Auto) 76.7 % (39.3-74.2) H 09/21/18 13:40 Lymph % (Auto) 15.4 % (15.0-45.0) 09/21/18 13:40 [place] % (Auto) 6.0 % (4.5-13.0) 09/21/18 13:40 Eos % (Auto) 1.0 % (0.6-7.6) 09/21/18 13:40 Baso % (Auto) 0.4 % (0.3-1.7) 09/21/18 13:40 Nucleat RBC Rel Count 0.0 % (0.0-0.2) 09/21/18 13:40 Absolute Neuts (auto) 9.14 10^3/uL (1.70-6.50) H 09/21/18 13:40 Absolute Lymphs (auto) 1.84 10^3/uL (1.00-3.00) 09/21/18 13:40 Absolute Monos (auto) 0.71 10^3/uL (0.30-0.80) 09/21/18 13:40 Absolute Eos (auto) 0.12 10^3/uL (0.03-0.40) 09/21/18 13:40 Absolute Basos (auto) 0.05 10^3/uL (0.02-0.10) 09/21/18 13:40 Absolute Nucleated RBC 0.00 10^3/uL (0-0.01) 09/21/18 13:40 Immature Gran % 0.5 % (0.0-1.1) 09/21/18 13:40 Immature Gran # 0.06 10^3/uL (0.00-0.10) 09/21/18 13:40 VBG Lactic Acid 2.8 mmol/L (0.7-2.1) H 09/21/18 15:39 POC Sodium 142 mEq/L (135-145) 09/21/18 14:16 Sodium 138 mEq/L (135-145) 09/21/18 13:40 POC Potassium 3.6 mEq/L (3.3-5.0) 09/21/18 14:16 Potassium 3.9 mEq/L (3.5-5.2) 09/21/18 13:40 POC Chloride 104 mEq/L (97-110) 09/21/18 14:16 Chloride 104 mEq/L (97-110) 09/21/18 13:40 Carbon Dioxide 25 mEq/l (22-31) 09/21/18 13:40 POC Total CO2 25 mEq/L (22-31) 09/21/18 14:16 Anion Gap 9 mEq/L (6-14) 09/21/18 13:40 POC BUN 18 mg/dL (7-23) 09/21/18 14:16 BUN 20 mg/dL (7-23) 09/21/18 13:40 Creatinine 1.0 mg/dL (0.6-1.0) 09/21/18 13:40 POC Creatinine 0.9 mg/dL (0.6-1.0) 09/21/18 14:16 Estimated GFR 55 09/21/18 13:40 Glucose 110 mg/dL (70-100) H 09/21/18 13:40 POC Glucose 109 mg/dL (70-100) H 09/21/18 14:16 Calcium 9.4 mg/dL (8.5-10.4) 09/21/18 13:40 Total Bilirubin 0.3 mg/dL (0.1-1.4) 09/21/18 13:40 Conjugated Bilirubin 0.3 mg/dL (0.0-0.5) 09/21/18 13:40 Unconjugated Bilirubin 0.0 mg/dL (0.0-1.1) 09/21/18 13:40 AST 36 IU/L (14-46) 09/21/18 13:40 ALT 52 IU/L (9-52) 09/21/18 13:40 Alkaline Phosphatase 79 IU/L (38-126) 09/21/18 13:40 Total Protein 6.6 g/dL (6.3-8.2) 09/21/18 13:40 Albumin 3.8 g/dL (3.5-5.0) 09/21/18 13:40 Lipase 80 IU/L (23-300) 09/21/18 13:40 Urine Color YELLOW 09/21/18 16:46 Urine Appearance CLEAR 09/21/18 16:46 Urine pH 5.0 (5.0-7.5) 09/21/18 16:46 Ur Specific [place] 1.021 (1.002-1.030) 09/21/18 16:46 Urine Protein NEGATIVE (NEGATIVE) 09/21/18 16:46 Urine Ketones NEGATIVE (NEGATIVE) 09/21/18 16:46 Urine Blood NEGATIVE (NEGATIVE) 09/21/18 16:46 Urine Nitrate NEGATIVE (NEGATIVE) 09/21/18 16:46 Urine Bilirubin NEGATIVE (NEGATIVE) 09/21/18 16:46 Urine Urobilinogen NEGATIVE EU (0.2-1.0) 09/21/18 16:46 Ur Leukocyte Esterase NEGATIVE (NEGATIVE) 09/21/18 16:46 Urine Glucose NEGATIVE (NEGATIVE) 09/21/18 16:46 Visualized and Interpreted imaging results: Yes Interpretation: CT: [id number] ventral hernia Assessment & Plan Assessment: Diarrhea (Acute) Lactic acidosis (Acute) Ventral hernia without obstruction or gangrene (Acute) Plan: 73yo F c longstanding ventral hernia - admit for hydration, I have little concern that this is incarcerated or stangulated given her reassuring exam - plan for NPO atmidnight, I have held OR time tomorrow for robotic repair. This has been discussed with the patient
[2018-09-21] MEDS: D5W 1/2 NS W/ 20 KCl/L 1,000 ML IV SCH (18:16)
[2018-09-21] MEDS ORDERED: ALBUTEROL 60 PUFFS/8 GM MDI IH PRN (18:42)
[2018-09-21] MEDS: METFORMIN HCL PO SCH (20:21)
[2018-09-21] MEDS: ATORVASTATIN CALCIUM 20 MG TAB PO SCH (20:21)
[2018-09-21] MEDS: SITAGLIPTIN PHOS PO SCH (20:21)
[2018-09-22] MEDS: D5W 1/2 NS W/ 20 KCl/L 1,000 ML IV SCH ×2 (02:24→18:03)
[2018-09-22 05:06] LABS: PLATELET COUNT 208 10^3/uL (150-400)
[2018-09-22] MEDS ORDERED: ceFAZolin 2 GM/DEXTROSE 100 ML IV ONE (06:17)
[2018-09-22] MEDS ORDERED: LR 1,000 ML IV ONE (06:52)
--- NOTE | 2018-09-22 07:00 | PDANEPAE ---
ANE Past Medical History - Cardiovascular History Hx Hypertension: No Hx Arrhythmias: No Hx Chest Pain: No Hx Coronary Artery / Peripheral Vascular Disease: No Hx CHF / Valvular Disease: No Hx Palpitations: No - Pulmonary History Hx COPD: No Hx Asthma/Reactive Airway Disease: Yes Hx Recent Upper Respiratory Infection: No Hx Oxygen in Use at Home: No Hx Sleep Apnea: No Sleep Apnea Screening Result - Last Documented: Negative Pulmonary History Comment: MILD ASTHMA TRIGGERED BY COLDS - Neurologic History Hx Cerebrovascular Accident: No Hx Seizures: No Hx Dementia: No - Endocrine History Hx Diabetes: Yes Obesity: yes, moderate Endocrine History Comment: TYPE 2 - Renal History Hx Renal Disorders: No - Liver History Hx Hepatic Disorders: No - Neurological & Psychiatric Hx Hx Neurological and Psychiatric Disorders: No Neurological / Psychiatric History Comment: DEPRESSION - Cancer History Hx Cancer: No - Congenital Disorder History Hx Congenital Disorders: Yes Congenital History Comment: DIABETES - GI History Hx Gastrointestinal Disorders: Yes Gastrointestinal History Comment: REFLUX - Other Health History Other Health History: UPPER DENTURES - Chronic Pain History Chronic Pain: Yes (LOWER BACK) - Surgical History Prior Surgeries: HERNIA REPAIR 06/22 ANE Review of Systems Review of Systems: - Exercise capacity METS (RN): 4 METS ANE Patient History - Allergies Allergies/Adverse Reactions: amoxicillin [From Augmentin] Allergy (Verified 10/13/17 12:27) Hives clavulanic acid [From Augmentin] Allergy (Verified 10/13/17 12:27) Hives erythromycin base Allergy (Verified 10/13/17 12:27) Rash naproxen Allergy (Verified 10/13/17 12:27) Rash - Home Medications Home Medications: Cholecalciferol (Vitamin D3) [Vitamin D3] 25,000 unit PO DAILY 10/11/17 [Last Taken 09/20/18] FLUoxetine HCL [Fluoxetine HCl] 40 mg PO DAILY 10/11/17 [Last Taken 09/20/18] Ibuprofen [Motrin (*)] 600 - 800 mg PO BID PRN 10/11/17 [Last Taken 10/13/17] Multivitamins [Multivitamin (*)] 1 each PO DAILY 10/11/17 [Last Taken 09/20/18] Omeprazole 40 mg PO DAILY 10/11/17 [Last Taken 09/20/18] Simvastatin [Zocor] 40 mg PO HS 10/11/17 [Last Taken 09/20/18] Sitagliptin Phos/Metformin HCl [Janumet 50-500 mg Tablet] 1 each PO BID [Last Taken 09/21/18] Albuterol [Proventil Inhaler HFA (*)] 1 - 2 puffs IH Q4H PRN 09/21/18 [Last Taken Unknown] Herbals/Supplements -Info Only 1 ea PO DAILY 09/21/18 [Last Taken Unknown] [place]-3 Fatty Acids [Fish Oil 1000 mg (*)] 1,000 mg PO DAILY 09/21/18 [Last Taken Unknown] - NPO status NPO Since - Liquids (Date): 09/22/18 NPO Since - Liquids (Time): 00:00 NPO Since - Solids (Date): 09/22/18 NPO Since - Solids (Time): 00:00 - Smoking Hx Smoking Status: Never smoked - Family Anes Hx Family Hx Anesthesia Complications: NONE ANE Labs/Vital Signs - Labs Result Diagrams: 09/22/18 04:53 09/22/18 04:53 - Vital Signs Vital Signs: reviewed preoperatively; see RN documention for details Blood Pressure: 149/96 Heart Rate: 83 Respiratory Rate: 18 O2 Sat (%): 92 Height: 152.4 cm Weight: 89.811 kg ANE Physical Exam - Airway Neck exam: FROM Mallampati Score: Class 1 Mouth exam: dentures - Pulmonary Pulmonary: reduced air movement - Cardiovascular Cardiovascular: regular rate and rhythym - ASA Status ASA Status: II ANE Anesthesia Plan Anesthesia Plan: general endotracheal anesthesia
[2018-09-22] MEDS ORDERED: fentaNYL 100 MCG/2 ML INJ ONE ×2 (07:02→08:00)
[2018-09-22] MEDS ORDERED: PROPOFOL 200 MG/20 ML VIAL ONE (07:02)
[2018-09-22] MEDS ORDERED: ROCURONIUM 50 MG/5 ML VIAL ONE ×2 (07:03→08:23)
[2018-09-22] MEDS ORDERED: METOCLOPRAMIDE 10 MG/2 ML VIAL ONE (07:04)
[2018-09-22] MEDS ORDERED: RANITIDINE 50 MG/2 ML VIAL ONE (07:06)
[2018-09-22] MEDS ORDERED: LIDOCAINE 2% 100 MG/5 ML SYR ONE (07:13)
[2018-09-22] MEDS ORDERED: SUCCINYLCHOLINE CHLORIDE 200 MG/10 ML SYR IVP ONE (07:14)
[2018-09-22] MEDS ORDERED: BUPIVACAINE/EPI 0.5% 30 ML SDV ONE (07:16)
[2018-09-22] MEDS ORDERED: GLYCOPYRROLATE 0.2 MG/1 ML VIAL ONE (07:23)
[2018-09-22] MEDS ORDERED: PHENYLEPHRINE HCL 100 MCG/ML SYR ONE ×2 (07:31→12:23)
[2018-09-22] MEDS ORDERED: PHENYLEPHRINE 10 MG/ML SDV ONE ×2 (07:49→10:29)
[2018-09-22] MEDS ORDERED: Herbals/Supplements -Info Only PO SCH (09:00)
[2018-09-22] MEDS ORDERED: HYDROmorphONE/DILAUDID 2 MG/ML INJ ONE (09:34)
[2018-09-22] MEDS ORDERED: KETOROLAC 30 MG/1 ML SDV ONE (10:48)
[2018-09-22] MEDS ORDERED: ONDANSETRON 4 MG/2 ML VIAL ONE (10:48)
[2018-09-22] MEDS ORDERED: SUGAMMADEX SODIUM 200 MG/2 ML VIAL IVP ONE ×2 (10:54→10:55)
[2018-09-22] MEDS ORDERED: fentaNYL 100 MCG/2 ML INJ IVP PRN (11:17)
[2018-09-22] MEDS ORDERED: MEPERIDINE 25 MG/0.5 ML AMP IVP PRN (11:17)
[2018-09-22] MEDS ORDERED: ONDANSETRON 4 MG/2 ML VIAL IVP PRN (11:17)
[2018-09-22] MEDS ORDERED: NALOXONE HCL 0.4 MG/ML INJ IVP PRN (11:17)
[2018-09-22] MEDS ORDERED: PHENYLEPHRINE HCL 100 MCG/ML SYR IVP PRN (11:17)
[2018-09-22] MEDS ORDERED: PROMETHAZINE HCL 25 MG/ML INJ IVP PRN (11:17)
[2018-09-22] MEDS ORDERED: LR 500 ML IV PRN (11:17)
[2018-09-22] MEDS ORDERED: METOCLOPRAMIDE 10 MG/2 ML VIAL IVP PRN (11:17)
[2018-09-22] MEDS ORDERED: ALBUTEROL 3 ML DEYVIAL IH PRN (11:17)
[2018-09-22] MEDS ORDERED: HYDROmorphONE/DILAUDID 1 MG/ML INJ IVP PRN (11:17)
[2018-09-22] MEDS ORDERED: ALBUTEROL HFA ANES ONLY 200 PUFFS/8.5 GM MDI IH ONE (11:22)
[2018-09-22] MEDS ORDERED: PHENYLEPHRINE 0.5% NASAL 15 ML SPRAY ONE (11:29)
--- NOTE | 2018-09-22 11:45 | POSTOPPROG ---
Post Op Note Date of Operation: 09/22/18 Surgeon: Ángel Mariano Link Trainer Teacher: MD Luis Armando, Yanni PAC Anesthesiologist: [place] Anesthesia: GET(General Endotracheal) Pre-op Diagnosis: recurrent ventral hernia Post-op Diagnosis: MAK, enterotomies, Procedure: robo-open ventral hernia repair, primary. Small bowel resxn Findings: many dense small bowel loops to old mesh Inf/Abcess present in the surg proc area at time of surgery?: No EBL: 50-100 Total fluids administered: 1000cc NS washout Complications: enterotomies x3 Drains: Adriano Christianson Specimen(s): small bowel
--- NOTE | 2018-09-22 12:34 | ASMTCMCOM ---
CM Note CM Note Notes: Pt is a 73 y/o female admitted for ventral hernia and lactic acidosis. CM spoke to Dr. Mariano regarding this case. He will order PT/OT. Needs are TBD at this time. CM to follow. Plan: TBD Date Signed: 09/22/2018 12:33 PM Electronically Signed By:JAQUELINE Black
--- NOTE | 2018-09-22 13:17 | POSTANESTH ---
Post Anesthetic Evaluation Cardiovascular Status: Normal, Stable Respiratory Status: Normal, Stable Level of Consciousness/Mental Status: Can Participate in Eval, Moderately Sleepy Pain Control: Adequate, Prn Tx Ordered Nausea/Vomiting Control: Adequate, Prn Tx Ordered Complications Possibly Related to Anesthesia: None Noted
[2018-09-22] MEDS: FLUoxetine 20 MG CAP PO SCH (13:42)
[2018-09-22] MEDS: PANTOPRAZOLE SODIUM 40 MG TAB PO SCH (13:43)
[2018-09-22] MEDS: METFORMIN HCL PO SCH ×2 (13:45→20:41)
[2018-09-22] MEDS: SITAGLIPTIN PHOS PO SCH ×2 (13:45→20:41)
[2018-09-22] MEDS: MULTIVITAMINS 1 EACH TAB PO SCH (13:45)
[2018-09-22] MEDS: Cholecalciferol (Vitamin D3) [Vitamin D3] PO SCH (13:45)
[2018-09-22] MEDS: ERTAPENEM 1 GM in NS 100 ML IV SCH (15:21)
--- NOTE | 2018-09-22 15:30 | PDMN ---
Medical Necessity Medical necessity: Change to inpt as of 09/22/18 @ 15:18, meets inpt criteria per MD order and [facility] S-250, Bowel Surgery: Small Intestine Resection, MC IP only list. 73 y/o w/recurrent ventral hernia presented w/worsening N/D/abd pain , surg intervention: robo-open ventral hernia repair and sm bowel resection (pt was found to have many dense sm bowel loops to old mesh), enterotomiesx3. Anticipate>2MN for ongoing med nec care.
[2018-09-22] MEDS: oxyCODONE IR 5 MG TAB PO PRN ×2 (17:12→20:41)
[2018-09-22] MEDS: ATORVASTATIN CALCIUM 20 MG TAB PO SCH (20:41)
[2018-09-23] MEDS: oxyCODONE IR 5 MG TAB PO PRN ×2 (01:59→12:01)
[2018-09-23] MEDS: D5W 1/2 NS W/ 20 KCl/L 1,000 ML IV SCH ×2 (02:02→17:34)
[2018-09-23 05:19] LABS: PLATELET COUNT 195 10^3/uL (150-400)
[2018-09-23] MEDS: PANTOPRAZOLE SODIUM 40 MG TAB PO SCH (08:33)
[2018-09-23] MEDS: ERTAPENEM 1 GM in NS 100 ML IV SCH (08:33)
[2018-09-23] MEDS: FLUoxetine 20 MG CAP PO SCH (08:33)
[2018-09-23] MEDS: MULTIVITAMINS 1 EACH TAB PO SCH (08:33)
[2018-09-23] MEDS: SITAGLIPTIN PHOS PO SCH ×2 (08:35→20:09)
[2018-09-23] MEDS: METFORMIN HCL PO SCH ×2 (08:35→20:09)
[2018-09-23] MEDS: Cholecalciferol (Vitamin D3) [Vitamin D3] PO SCH (08:36)
[2018-09-23] MEDS ORDERED: SIMETHICONE 80 MG TAB CHEW PO PRN (11:45)
--- NOTE | 2018-09-23 12:56 | SOAPPROG ---
SOAP Progress Note Assessment/Plan: Assessment: 73-year-old female postop day 1 status post robotic converted to open recurrent ventral hernia repair, small-bowel resection Vitals reviewed and are stable, still intermittently tachycardic but improving. Afebrile. Pain is very well controlled transitioned to orals as diet is advanced Her abdomen is soft she does have some hypoactive bowel sounds and does state that she is having some flatus. The drain in the subcu is mostly bloody will continue this to bulb suction. Ambulate She is making good progress anticipate that we will advance her diet within the next day or so PT OT Plan: 09/23/18 12:55 Subjective: Feels well, passing some gas. Objective: Vital Signs Temp Pulse Resp BP Pulse Ox 37.3 C 95 18 119/81 H 97 09/23/18 11:35 09/23/18 11:35 09/23/18 11:35 09/23/18 11:35 09/23/18 11:35 Laboratory Results 09/23/18 04:42 09/23/18 04:42 09/22/18 09/23/18 09/24/18 05:59 05:59 05:59 Intake Total 250 Output Total 450 Balance -200 ICD10 Worksheet Patient Problems: Problems Problem Status Onset Diarrhea Acute Lactic acidosis Acute Ventral hernia without obstruction or gangrene Acute Chronic abdominal pain Acute
[2018-09-23] MEDS: ATORVASTATIN CALCIUM 20 MG TAB PO SCH (20:09)
[2018-09-24 05:21] LABS: PLATELET COUNT 174 10^3/uL (150-400)
[2018-09-24] MEDS: D5W 1/2 NS W/ 20 KCl/L 1,000 ML IV SCH (06:04)
[2018-09-24] MEDS: FLUoxetine 20 MG CAP PO SCH (08:15)
[2018-09-24] MEDS: IBUPROFEN 200 MG TAB PO PRN ×3 (08:15→20:09)
[2018-09-24] MEDS: ERTAPENEM 1 GM in NS 100 ML IV SCH (08:15)
[2018-09-24] MEDS: MULTIVITAMINS 1 EACH TAB PO SCH (08:15)
[2018-09-24] MEDS: PANTOPRAZOLE SODIUM 40 MG TAB PO SCH (08:16)
[2018-09-24] MEDS: SITAGLIPTIN PHOS PO SCH ×2 (08:18→20:06)
[2018-09-24] MEDS: Cholecalciferol (Vitamin D3) [Vitamin D3] PO SCH (08:18)
[2018-09-24] MEDS: METFORMIN HCL PO SCH ×2 (08:18→20:06)
--- NOTE | 2018-09-24 09:31 | SOAPPROG ---
SOAP Progress Note Assessment/Plan: Assessment: 73-year-old female postop day 2 status post robotic converted to open recurrent ventral hernia repair, small-bowel resection still intermittently tachy, but improving pain is controlled, will transition to PO REg diet, has good bowel sounds and is passing flatus dc ugarte ambulate likely dc tomorrow Plan: 09/23/18 12:55 09/24/18 09:30 Subjective: passing gas, tolerating clears, pain is controlled Objective: Vital Signs Temp Pulse Resp BP Pulse Ox 36.9 C 98 16 116/65 97 09/24/18 07:44 09/24/18 07:44 09/24/18 07:44 09/24/18 07:44 09/24/18 07:44 Laboratory Results 09/24/18 04:37 09/24/18 04:37 09/23/18 09/24/18 09/25/18 05:59 05:59 05:59 Intake Total 250 800 Output Total 450 5910 Balance -200 -1950 ICD10 Worksheet Patient Problems: Problems Problem Status Onset Diarrhea Acute Lactic acidosis Acute Ventral hernia without obstruction or gangrene Acute Chronic abdominal pain Acute
--- NOTE | 2018-09-24 14:55 | ASMTCMCOM ---
CM Note CM Note Notes: Spoke with pt in the room. Pt lives with dtr and son in law and will likely discharge tomorrow. PT and OT cleared her for independent DC. Pt comfortable with this plan. No CM needs noted at this time. D/C Plan: Independent with support from family. Date Signed: 09/24/2018 02:55 PM Electronically Signed By:Carline Cobb
[2018-09-24] MEDS: oxyCODONE IR 5 MG TAB PO PRN (15:08)
[2018-09-24] MEDS: ATORVASTATIN CALCIUM 20 MG TAB PO SCH (20:06)
--- NOTE | 2018-09-24 20:47 | GOP ---
[f rep st] OPERATIVE REPORT DATE OF OPERATION: 09/22/2018 SURGEON: Ánegl Mariano MD HIGHWAY PAINTER: 1. Bre Durán MD. 2. Gloria Liao, PAC. ANESTHESIA: General endotracheal. ANESTHESIOLOGIST: Isabel Elaine MD. PREOPERATIVE DIAGNOSIS: Incarcerated recurrent ventral hernia. POSTOPERATIVE DIAGNOSIS: Incarcerated recurrent ventral hernia. PROCEDURE PERFORMED: Attempted robotic ventral hernia repair converted to open, small bowel resectio n, primary ventral hernia repair. FINDINGS: Many dense adhesions in the hernia sac, mostly consisting of incarcerated small bowel. Mu ltiple enterotomies were made robotically. Conversion to open, small bowel resection and primary her kiah repair performed. SPECIMENS: Small bowel. ESTIMATED BLOOD LOSS: 100 cc. DESCRIPTION OF PROCEDURE: The patient was greeted in the preoperative suite. Once again, risks, gladis efits, and alternatives were discussed. Consent was signed. She was then brought back to the operat isabella suite, placed on the OR table in supine position. After all anesthesia machines including SCDs w ere on and functioning, a [employer] time-out was performed. After successful inducti on of general anesthesia, the patient's abdomen was prepped and draped in typical sterile fashion. I commenced the procedure by making a right upper quadrant cutdown, through which the Veress needle wa s passed. I achieved pneumoperitoneum to 15 mmHg, through which an 8 mm trocar was inserted with a V isiport technique. Once successfully in the abdomen, I placed 2 additional 8 mm trocars, 1 in the ri ght mid abdomen and 1 in the right lower quadrant, all under direct visualization. The robot was the n successfully docked. I turned my attention first toward lysing mostly omental adhesions superiorly . There were some dense small bowel adhesions inferiorly and I sharply dissected the majority of the se. A small enterotomy was made initially approximately 1 cm large and subsequently a larger enterot sera was made trying to dissect this densely adherent small bowel off the old ventral hernia mesh. It was at this point in time that I decided to convert to open. I made a generous midline incision ove r the hernia area, carried this down through the subcutaneous tissue. Once successfully in the abdom en, I identified even more small bowel which was densely adherent to the mesh and was successful in r emoving most of this. All in all, there were probably 3 enterotomies made, which were all successful ly resected. Once the fascial edges were successfully skeletonized, I turned my attention toward the small bowel resection. Again, approximately 15 cm of bowel was successfully resected using a TROY 75 blue load stapler. The proximal and distal ends were successfully stapled off. Mesentery was taken with the Harmonic Scalpel. I then performed a small bowel anastomosis [id number] functional end-t o-end. The 2 pieces of small bowel which were well perfused, were brought together in a [id number] fashion. Enterotomies were made and through a single fire of the Endo TROY blue load stapler a commo n enterotomy was made. This common enterotomy was then oversewn with first a running 3-0 PDS suture, followed by Lemberted 3-0 Vicryl. The mesenteric defect was closed with a running 3-0 Vicryl stitch . This was well perfused appearing. It was delivered back into the patient's abdomen. The abdomen was then irrigated with multiple liters of sterile saline, noting clear effluent in the suction canis ter. I then interrogated the remainder of the abdomen, as well as ran the small bowel. I found no o ther significant findings in either the colon or the small bowel. Gowns and gloves were changed. I then turned my attention toward closure of the hernia. Given spillage of small bowel contents, I wilton cted not to use mesh. The fascia was reapproximated under minimal tension using a running #1 PDS sut ure. A 15-[place]jib[place]ian round OJ was placed within the subcutaneous tissue. This was then oversewn with a running 2-0 Vicryl stitch and the skin was closed with ranjan. The patient was then extubated and t aken to the PACU in satisfactory condition. DRAINS: A 15-[place]ib[place] OJ to the subcu. INSTRUMENT COUNT: All counts were reported as correct x2. /[id number]/MODL
[2018-09-25] MEDS: PANTOPRAZOLE SODIUM 40 MG TAB PO SCH (07:46)
[2018-09-25] MEDS: FLUoxetine 20 MG CAP PO SCH (07:46)
[2018-09-25] MEDS: MULTIVITAMINS 1 EACH TAB PO SCH (07:46)
[2018-09-25] MEDS: Cholecalciferol (Vitamin D3) [Vitamin D3] PO SCH (07:47)
[2018-09-25] MEDS: METFORMIN HCL PO SCH (07:48)
[2018-09-25] MEDS: SITAGLIPTIN PHOS PO SCH (07:48)
[2018-09-25] MEDS: ERTAPENEM 1 GM in NS 100 ML IV SCH (07:51)
[2018-09-25] MEDS: oxyCODONE IR 5 MG TAB PO PRN (08:01)
[2018-09-25 08:38] VITALS: BP 131/64
--- NOTE | 2018-09-25 10:43 | PDDCSUM ---
Discharge Summary Discharge Summary: DISCHARGE SUMMARY Date of Admission September 21 Date of Discharge September 25 DISCHARGE DIAGNOSES -incarcerated recurrent ventral hernia HOSPITAL COURSE The patient was admitted from the ED and taken to the operating room where they underwent an uneventful robotic converted to open ventral hernia repair with small bowel resection. They were subsequently taken to the PACU and then the general medical floor. The hospital course was uneventful, their diet was advanced to a regular diet which was well tolerated and their pain was well controlled. They were discharged home in stable condition on the morning of the DISCHARGE MEDICATIONS Oxycodone, Levaquin DISPOSITION Home FOLLOW UP Follow up with me in the office in 10-14 days for a general post-operative visit
[2018-09-25] MEDS: IBUPROFEN 200 MG TAB PO PRN (11:53)
--- NOTE | 2018-09-25 12:16 | ASDISCHSUM ---
Discharge Information Plan Status:Home with No Needs Medically Cleared to Leave:09/25/2018 Discharge Date:09/25/2018 CM D/C Disposition:Home, Routine, Self-Care ADT D/C Disposition:Home, Routine, Self-Care Projected Discharge Date:09/25/2018 Transportation at D/C:Family Discharge Delay Reason: Follow-Up Date:09/25/2018 Discharge Slot: Final Diagnosis: Placement Information Patient Contact Information Contact Name:CRISTOBAL Relationship:Daughter Address: Work Phone: City: [facility] Phone: State/[place] Code: Email: Financial Information Financial Class:Medicare Advantage Plans Primary Plan Desc:RADHA CHRISTOPHER MEDICARE Primary Plan Number:[id number] Secondary Plan Desc: Secondary Plan Number: Assessment Information [facility] CM Progress Note CM Note CM Note Notes: Pt is a 73 y/o female admitted for ventral hernia and lactic acidosis. CM spoke to Dr. Mariano regarding this case. He will order PT/OT. Needs are TBD at this time. CM to follow. Plan: TBD Date Signed: 09/22/2018 12:33 PM Electronically Signed By:JAQUELINE Black [facility] CM Progress Note CM Note CM Note Notes: Spoke with pt in the room. Pt lives with dtr and son in law and will likely discharge tomorrow. PT and OT cleared her for independent DC. Pt comfortable with this plan. No CM needs noted at this time. D/C Plan: Independent with support from family. Date Signed: 09/24/2018 02:55 PM Electronically Signed By:Carline Cobb LACE LACE Length of stay for Answers: 3 days current admission Acuity / Level of Answers: Yes Care: Did the patient have an inpatient admission? Comorbidities - select Answers: Diabetes (uncontrolled or all that apply controlled) Opioid dependence / Chronic pain # of Emergency department Answers: 1-2 visits in the last 6 months Social determinants Answers: Mental health diagnosis (anxiety, depression, pers onality disorders, etc.) Score: 15 Date Signed: 09/25/2018 12:11 PM Electronically Signed By:JESSE Arredondo Case Management Discharge Plan Note Case Management Discharge Discharge Order Complete? Answers: Yes Patient to Obtain Answers: via Family Medications Transportation Arranged Answers: Family/Friends Discharge Comments Notes: Pt has been medically cleared for d/c today. She lives with her daughter who will transport her home. Pt has no CM needs. Date Signed: 09/25/2018 12:13 PM Electronically Signed By:JESSE Arredondo Intervention Information Intervention Type:*IM-Signed Date of Service:09/25/2018 10:37 AM Patient Type:Inpatient Staff Member:Jennifer Herrera Hours: Discipline: Severity: Comment:
--- NOTE | 2018-09-25 12:28 | ASMTDCNOTE ---
Case Management Discharge Discharge Order Complete? Answers: Yes Patient to Obtain Answers: via Family Medications Transportation Arranged Answers: Family/Friends Discharge Comments Notes: Pt has been medically cleared for d/c today. She lives with her daughter who will transport her home. Pt has no CM needs. Date Signed: 09/25/2018 12:13 PM Electronically Signed By:JESSE Arredondo
== END 2018-09-25 14:03 | disposition home or self-care (01) | DRG 331 ==
LOC: INTOOBSV 16:01 → F3E 18:13 → OBSVTOIN 09-22 15:18
PROVIDERS: ADMIT Surgery; ATTEND Surgery
DX: K43.0 Incisional hernia with obstruction, without gangrene (principal); Z53.31 Laparoscopic surgical procedure converted to open procedure; E86.9 Volume depletion, unspecified; F32.9 Major depressive disorder, single episode, unspecified; E11.9 Type 2 diabetes mellitus without complications; E78.5 Hyperlipidemia, unspecified; G89.29 Other chronic pain; J45.998 Other asthma; K21.9 Gastro-esophageal reflux disease without esophagitis
CPT/HCPCS: 82435-PO; 82565-PO; 82947-PO; 84132-PO; 84295-PO; 84520-PO; 85014-ER; 96374; 97116-GP; 97161-GP; 97165-GO; 97530-GP; 97535-GO; G0378; J0330; J0690; J1170; J1335; J1885; J2001; J2370; J2405; J2704; J2765; J2780; J3010; Q9967